=== PATIENT | female | born 1950 | race Caucasian/White ===

== ENCOUNTER 2018-05-02 09:13 | Day surgery (SDC) | payer MEDICARE, SELFPAY ==
[2018-04-27 15:48] LABS: Prothrombin Time (Protime)PT. 12.8 SECONDS (11.7-14.9)
[2018-04-27 15:49] LABS: Partial Thromboplast Time 25.8 Seconds (24.1-36.2)
[2018-04-27 15:52] LABS: Hematocrit 48.3 % (37-47); Hemoglobin 16.4 g/dl (12.0-15.0); Mean Corpuscular Hgb 33.5 pg (27.0-32.0); Mean Corpuscular Volume 98.8 fL (81-99); Mean Platelet Vol. 10.2 fl (6.2-12.0); Platelet Count 214 K/mm3 (150-450); RBC Distribution Width CV 14.6 % (11.6-14.6); RBC Distribution Width SD 52.6 fl (35.1-43.9); Red Blood Count 4.89 M/mm3 (4.2-5.4); White Blood Count 7.8 K/mm3 (4.4-11.0)
[2018-04-27 15:54] LABS: Scan Indicated on CBC? Y/N NO
[2018-04-27 16:09] LABS: Anion Gap 12 (5-15); BUN 13 mg/dL (7-18); BUN/Creat Ratio 18.7 RATIO (10-20); Calcium,Total 9.2 mg/dL (8.5-10.1); Chloride 103 mmol/L (98-107); EST Glomerular Filtration Rate 89 mL/min (>60); Est Glom Filt Rate - Afr Amer 108 mL/min (>60); Glucose 83 mg/dL (74-106); Potassium 3.7 mmol/L (3.5-5.1); Sodium Level 140 mmol/L (136-145)
--- NOTE | 2018-05-01 17:36 | PCM.HP.BLA ---
History and Physical Date of Admission: 05/02/18 Surgical History and Physical Laura Sloan, a 68 year old female 2 0 0 0 2, presents for D and C and hysteroscopy on May 02, 2018. 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 Laura claims it started suddenly and has been present 5 weeks. It occurs intermittantly. It is located in the lower abdomen. Laura characterizes it to be non-radiating. Laura characterizes the quality spotting. Severity is moderate and very concerned; Additional comments are: EMBx OK; U/S shows 13 mm EM lining. MEDICATIONS HISTORY: Patient is also takin. omeprazole 20 mg capsule,delayed release, One pill by mouth once a day ALLERGIES: No Known Allergies Infections - Chicken pox, Mumps and Measles Illnesses - Borderline Diabetes, Acid Reflux Accidents - None Hospitalizations - see surgery Review of Systems: GENERAL - Denies fever, or chills SKIN - Denies skin changes EYES - Denies visual changes EARS - Denies difficulty hearing NOSE - Denies nasal congestion or bleeding MOUTH - Denies sore throat or difficulty swallowing NECK - Denies pain or swelling RESPIRATORY - Denies shortness of breath or wheezing CARDIOVASCULAR - Denies palpitations or chest pain GASTROINTESTINAL - Denies nausea, vomiting, diarrhea, constipation GENITOURINARY - Denies dysuria, frequency of urination, incontinence of urine MUSCULOSKELETAL - Denies joint or muscle pain NEUROLOGICAL - Denies localized numbness or weakness PSYCHIATRIC - Denies depression or anxiety ENDOCRINE - Denies heat or cold intolerance, weight loss or gain HEMATO-IMMUNOLOGIC - Denies excesive bleeding with cuts SOCIAL HISTORY: Alcohol Use - wine Smoking - / PPD (ATQ) Diet - no special diet Lifestyle - moderate stress lifestyle and Exercise - active Seat Belt Use - always Employer - Retired Illicit Drug Use - None Sexual Activity - Spouse-Sig Other Name - Umesh Sloan Spouse-Sig Other Occupation - Retired Children Name(s) - 2 children Control - postmenopausal FAMILY HISTORY: MENSTRUAL HISTORY: LMP Known?- Postmenopausal PAST PREGNANCIES: Total Pregnancies - 2; Full Term Pregnancies - 2; Premature - 0; Abortions, Induced - 0; Abortions, Spontaneous - 0; Ectopics - 0; Multiple Births - 0; Living Children - 2 SURGICAL HISTORY: 1. Tubal, 1979 PHYSICAL EXAM BP- 140/90 Sitting, Right arm, regular cuff Weight- 279.76066 lbs Height- 67.00 inch BMI:43.91 CONSTITUTIONAL - NAD, well nourished, and well developed SKIN - No rash, lesions, or ulcers HEENT - Normocephalic, PERRLA, EOMI NECK - No nodes, no nuchal rigidity and thyroid normal size and texture LYMPH NODES - Palpation of lymph nodes in neck and groins within normal limits LUNGS - CTA x2 without wheezes, crackles or rales CARDIAC - Regular rate and rhythm without rubs, murmurs, or gallops ABDOMEN - Without hepatosplenomegaly, distention, masses, rebound, or guarding; normal bowel sounds; no hernias EXTREMITIES - No edema or calf tenderness NEUROLOGICAL - Cranial nerves II-XII grossly intact PSYCHIATRIC - A and O to time, place, person, mood and affect DETAILED PELVIC EXAM External Genitial Vagina - non-tender without lesions Urethra/Urethral Meatus - non-tender Bladder - non-tender Vagina - vaginal valle are pink and moist without loss of rugae and no evidence of atropy Cervix - without cervical motion tenderness and has normal size and features without evident lesions Uterus - multiparous size 6 cm & wt 75-125 g Adnexa - clear without masses or tenderness ASSESSMENT/PLAN: 1. Postmenopausal Bleeding Thickened Endometrium. Discussed need to proceed with D and C and H/S. Discussed RBAs and all questions answered.
[2018-05-02 09:39] VITALS: BP 144/87; PULSE 78; RESP 16; TEMP 36.7; O2SAT 94; BMI 43.3
[2018-05-02 09:56] LABS: Bedside Glucose 133 mg/dL (70-110)
--- NOTE | 2018-05-02 10:55 | CER_PTH ---
PATIENT: JONNATHAN SNOW LOC: [facility] [place] [facility] [place][id number] AGE/SX: 68/F ROOM: RE05/02/[address]: Dr. Gamaliel Jiménez MD : 1950 BED: DIS: 05/02/2018 SPEC #: [id number] RECD: 05/02/18 12:28 STATUS: KEVIN SALVADOR #: [id number] BO: 05/02/18 10:[address]: Gamaliel Jiménez DEPT: SURGICAL PATHOLOGY RECD BY: Julius Zimmerman ENTERED: 05/02/18 13:14 SP TYPE: CERV OTHR DR: Dr. Bridger Grewal MD Tissues: A - Uterine cervix, NOS B - Endometrium, NOS Procedures: Surgery Specimen Level IV HEADER OPERATION: Hysteroscopy, fractional dilation and curettage PRE-OP DIAGNOSIS: Postmenopausal bleeding, thickened endometrium TISSUE SUBMITTED: A - Cervical curettings, B - Endometrial curettings MICROSCOPIC DIAGNOSIS A. Cervix, curettings: Scant strips of benign superficial endocervix. B. Endometrium, curettings: Polypoid fragments of simple and focal complex hyperplasia without atypia. Detached fragments of benign squamous mucosa. See comment. AM:vandana 05/03/18 COMMENT B. The polypoid fragments may represent portions of endometrial polyp. Clinical correlation is suggested. MICROSCOPIC DESCRIPTION Slides are reviewed. GROSS DESCRIPTION A - Received in fixative is one container labeled with the patient's name and designated cervical curettings. The specimen consists of light mucoid material aggregating to 1 x 0.2 x <0.1 cm. The specimen is totally submitted in one cassette. B - Received in fixative is one container labeled with the patient's name and designated endometrial curettings. The specimen consists of multiple irregular fragments of pink-vasquez soft tissue that in aggregate measure 2.5 x 2 x 0.2 cm. The specimen is totally submitted in one cassette. / AM:vandana 05/02/18 TC:5 CPT: 96902 x2
--- NOTE | 2018-05-02 11:53 | PCM.OPRPT ---
Report of Operation Date of Procedure: 05/02/18 Pre-Operative Diagnosis: Postmenopausal Bleeding, Thickened Endometrium Post-Operative Diagnosis: This Menopausal Bleeding, Thickened Endometrial, Endometrial Polyp Surgery/Procedure Performed:: Hysteroscopy and Fractional Dilation and Curettage Description of Surgical Findings:: 8 cm endometrial cavity with cervix high in the vagina making LAVH technically extremely difficult. However robotic hysterectomy would be feasible if needed. There is noted to be approximately a 1 cm lobulated polyp in the left mid uterine cavity. This was removed completely and noted to be clear with repeat hysteroscopic examination. Type of Anesthesia:: MAC Anesthesiologist: Moises Mix Specimen's removed: Endometrial curettings and endocervical curettings Drains: None Estimated Blood Loss (mL): Minimal Fluids Replaced: Crystalloid Description of Procedure: Surgeon: Gamaliel Jiménez MD, FACOG Indications: This is a 68 year old patient who has the above diagnosis. The patient has been counseled regarding the risk and indications of this procedure including the possibility of bleeding, infection, and injury to surrounding structures such as bowel bladder. All questions were answered and we consider the patient well-informed. Procedure: The patient was taken to the operating room where after induction of general anesthesia, she was placed in the dorsolithotomy position and prepped and draped in the usual sterile fashion. After collecting an endocervical specimen, the anterior cervix was grasped with the tenaculum and dilated to about 4-5 mm. A 3 mm hysteroscope was placed in the uterus of the above findings were noted. Cervix was dilated to about 7-8 mm and uterus was gently curetted removing all contents. Hysteroscope was reinserted and all material was noted to be removed. In the course of the procedure approximately 100 cc of saline distending media was used and virtually all of this was recovered. Patient tolerated procedure well was taken to recovery room in satisfactory condition sponge instrument and needle counts were all reportedly correct. Estimated blood loss for the case was minimal. Specimens to pathology was endometrial and endocervical curettings Grafts/Implants Used: None - Complications None - Admit VTE Documentation VTE Present on Admission: Yes VTE Mechan Device Prophylaxis: SCD's VTE Pharm Prophylaxis ordered?: No
--- NOTE | 2018-05-02 11:59 | DCINST_ITS ---
Discharge Diet: No Restrictions Discharge Activity: Return to Normal Activity, May Shower, May Take a Tub Bath Call your doctor if you observe: Fever of 101 or Higher, Inability to urinate, Inability to have a bowel movement, Using more than one pad per hour Allergies/Adverse Reactions: Allergies amoxicillin [From Augmentin] Allergy (Verified 04/26/18 11:08) JAUNDICE/DIARRHEA clavulanic acid [From Augmentin] Allergy (Verified 04/26/18 11:08) JAUNDICE/DIARRHEA levofloxacin [From Levaquin] Allergy (Verified 04/26/18 11:08) JAUNDICE/DIARRHEA Medications to take at Discharge Chromium/Herbal Complex No.238 [Green Tea Caplet] 1 each PO DAILY 04/26/18 Cinnamon Bark [Cinnamon] 1,000 mg PO DAILY 04/26/18 Cranberry 42 mg PO DAILY 04/26/18 Lactobacillus Combo No.10 [Probiotic] 1 each PO DAILY 04/26/18 Magnesium 250 mg PO DAILY 04/26/18 Methylcellulose [Fiber] 500 mg PO DAILY 04/26/18 Multivitamin with Minerals [Multiple Vitamin] 1 each PO DAILY 04/26/18 Omeprazole Magnesium [Prilosec Otc] 20 mg PO DAILY 04/26/18 Potassium (Otc) [Potassium Otc] 99 mg PO DAILY 04/26/18 Primary Care Physician: Bridger Grewal [Primary Care Provider] - Test Results: Test results from this visit will be discussed in further detail at your follow- up appointment, if applicable. Please Follow Up With: Gamaliel Jiménez MD When: 2-3 weeks
[2018-05-02 12:01] VITALS: BP 132/75; BP 144/87; PULSE 88; RESP 18; TEMP 36.5; O2SAT 98
[2018-05-02 12:05] VITALS: BP 144/87; BP 147/82; PULSE 88; RESP 18; O2SAT 98
[2018-05-02 12:10] VITALS: BP 144/87; BP 147/74; PULSE 84; RESP 18; O2SAT 94
[2018-05-02 12:15] VITALS: BP 144/87; BP 150/88; PULSE 89; RESP 18; TEMP 36.8; O2SAT 93
[2018-05-02 13:12] VITALS: BP 144/87
== END 2018-05-02 13:18 | disposition home or self-care (01) ==
LOC: SDC 09:18 → AC 09:27
PROVIDERS: Family Provider Family Medicine; PCP Family Medicine; Referring Provider Obstetrics & Gynecology; Visit Provider Obstetrics & Gynecology
PROC: 0UDB8ZZ Extraction of Endometrium, Via Natural or Artificial Opening Endoscopic (ICD-10-PCS; CPT 58558; principal; 2018-05-02 10:45)
DX: N85.01 Benign endometrial hyperplasia (principal); K21.9 Gastro-esophageal reflux disease without esophagitis; R73.09 Other abnormal glucose; N95.0 Postmenopausal bleeding; N84.0 Polyp of corpus uteri; Z79.899 Other long term (current) drug therapy; F17.200 Nicotine dependence, unspecified, uncomplicated
CPT/HCPCS: 00952; 58558; 36415; 80048; 82962; 85027; 85610; 85730; 86850; 86900; 88305; J7120; J2405

== ENCOUNTER 2018-06-13 08:14 | Day surgery (SDC) | payer MEDICARE, SELFPAY ==
--- NOTE | 2018-06-08 12:01 | EKG12_ITS ---
Test Reason : PREOP Blood Pressure : / mmHG Vent. Rate : 087 BPM Atrial Rate : 087 BPM P-R Int : 158 ms QRS Dur : 074 ms QT Int : 372 ms P-R-T Axes : 039 -25 059 degrees QTc Int : 447 ms Normal sinus rhythm Normal ECG Confirmed by DONITA PAGAN, PLACIDO ([id number]), associate entertainment editor REYNA TEJADA ([id number]) on 06/09/2018 11:21:32 AM Referred By: Gamaliel Jiménez Confirmed By:PLACIDO DUCKWORTH MD
[2018-06-08 12:13] LABS: Hematocrit 52.2 % (37-47); Mean Corp Hgb Conc 32.6 g/gl (32-36); Mean Corpuscular Hgb 32.3 pg (27.0-32.0); Mean Corpuscular Volume 99.2 fL (81-99); Mean Platelet Vol. 9.9 fl (6.2-12.0); Platelet Count 204 K/mm3 (150-450); RBC Distribution Width CV 12.7 % (11.6-14.6); RBC Distribution Width SD 46.1 fl (35.1-43.9); Red Blood Count 5.26 M/mm3 (4.2-5.4)
[2018-06-08 12:17] LABS: Scan Indicated on CBC? Y/N NO
[2018-06-08 12:21] LABS: Prothrombin Time (Protime)PT. 12.7 SECONDS (11.7-14.9)
[2018-06-08 12:22] LABS: Partial Thromboplast Time 28.6 Seconds (24.1-36.2)
[2018-06-08 12:42] LABS: ALB/GLOB Ratio 0.9 RATIO (0.9-2.4); AST(SGOT) 32 U/L (15-37); Alanine Aminotransfer ALT/SGPT 44 U/L (13-56); Albumin, Serum 3.6 g/dL (3.2-5.0); Alkaline Phosphatase 105 U/L (45-117); Anion Gap 6 (5-15); BUN 13 mg/dL (7-18); BUN/Creat Ratio 17.9 RATIO (10-20); Calcium,Total 8.9 mg/dL (8.5-10.1); Chloride 105 mmol/L (98-107); Creatinine, Serum 0.73 mg/dL (0.55-1.02); EST Glomerular Filtration Rate 85 mL/min (>60); Est Glom Filt Rate - Afr Amer 102 mL/min (>60); Globulin 3.8 g/dL (2.2-4.2); Glucose 105 mg/dL (74-106); Potassium 4.2 mmol/L (3.5-5.1); Protein, Total 7.4 g/dL (6.4-8.2); Sodium Level 136 mmol/L (136-145)
--- NOTE | 2018-06-12 21:04 | PCM.HP.BLA ---
History and Physical Date of Admission: 06/13/18 Surgical History and Physical Laura Sloan, a 68 year old female 2 0 0 0 2, presents for RAVH/BSO on June 13, 2018 at 7;30. 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 Bleeding now has stopped. PMB which began 01-27-18. Laura claims it started suddenly. It occurs intermittantly. Laura characterizes the quality spotting. Severity is moderate and very concerned. Additional comments are: Referred by Dr. Grewal.; Additional comments are: EMBx OK; U/S shows 13 mm EM lining. MEDICATIONS HISTORY: Patient is also takin. omeprazole 20 mg capsule,delayed release, One pill by mouth once a day ALLERGIES: No Known Allergies, Augmentin, Jaundice, Levaquin and Jaundice Infections - Chicken pox, Mumps and Measles Illnesses - Borderline Diabetes, Acid Reflux Accidents - None Hospitalizations - see surgery Review of Systems: GENERAL - Denies fever, or chills SKIN - Denies skin changes EYES - Denies visual changes EARS - Denies difficulty hearing NOSE - Denies nasal congestion or bleeding MOUTH - Denies sore throat or difficulty swallowing NECK - Denies pain or swelling RESPIRATORY - Denies shortness of breath or wheezing CARDIOVASCULAR - Denies palpitations or chest pain GASTROINTESTINAL - Denies nausea, vomiting, diarrhea, constipation GENITOURINARY - Denies dysuria, frequency of urination, incontinence of urine MUSCULOSKELETAL - Denies joint or muscle pain NEUROLOGICAL - Denies localized numbness or weakness PSYCHIATRIC - Denies depression or anxiety ENDOCRINE - Denies heat or cold intolerance, weight loss or gain HEMATO-IMMUNOLOGIC - Denies excesive bleeding with cuts SOCIAL HISTORY: Alcohol Use - wine Smoking - 1/ PPD (ATQ) Diet - no special diet Lifestyle - moderate stress lifestyle and Exercise - active Seat Belt Use - always Employer - Retired Illicit Drug Use - None Sexual Activity - Spouse-Sig Other Name - Umesh Sloan Spouse-Sig Other Occupation - Retired Children Name(s) - 2 children Control - postmenopausal FAMILY HISTORY: nc MENSTRUAL HISTORY: LMP Known?- Postmenopausal PAST PREGNANCIES: Total Pregnancies - 2; Full Term Pregnancies - 2; Premature - 0; Abortions, Induced - 0; Abortions, Spontaneous - 0; Ectopics - 0; Multiple Births - 0; Living Children - 2 SURGICAL HISTORY: 1. Tubal, 1979 2. 05/02/2018 hysteroscopy, fractional D and C ; Gamaliel Jiménez M.D. PHYSICAL EXAM BP- 138/86 Sitting, Right arm, large cuff Weight- 278.04376 lbs Height- 67 inch BMI:43.63 CONSTITUTIONAL - NAD, well nourished, and well developed SKIN - No rash, lesions, or ulcers HEENT - Normocephalic, PERRLA, EOMI NECK - No nodes, no nuchal rigidity and thyroid normal size and texture LYMPH NODES - Palpation of lymph nodes in neck and groins within normal limits LUNGS - CTA x2 without wheezes, crackles or rales CARDIAC - Regular rate and rhythm without rubs, murmurs, or gallops ABDOMEN - Without hepatosplenomegaly, distention, masses, rebound, or guarding; normal bowel sounds; no hernias EXTREMITIES - No edema or calf tenderness NEUROLOGICAL - Cranial nerves II-XII grossly intact PSYCHIATRIC - A and O to time, place, person, mood and affect DETAILED PELVIC EXAM External Genitial Vagina - non-tender without lesions Urethra/Urethral Meatus - non-tender Bladder - non-tender Vagina - vaginal valle are pink and moist without loss of rugae and no evidence of atropy Cervix - without cervical motion tenderness and has normal size and features without evident lesions Uterus - multiparous size 6 cm & wt 75-125 g Adnexa - clear without massess or tenderness ASSESSMENT/PLAN: 1. Complex Endometrial Hyperplasia Without Atypia and Postmenopausal Bleeding Discussed options for treatment including prolonged progesterone therapy or proceeding with hysterectomy. Pt desires the surgery. Plan RAVH/BSO. Discussed RBAs and all questions answered.
[2018-06-13] VITALS (14 sets, daily range): BP systolic 114–159; BP diastolic 46–88; PULSE 63–104; RESP 14–24; TEMP 36.4–37.2; O2SAT 89–97; BMI 43.0
--- NOTE | 2018-06-13 10:30 | HYST_PTH ---
PATIENT: JONNATHAN SNOW LOC: [facility] [place] U#:[id number] AGE/SX: 68/F ROOM: RE06/13/[address]: Dr. Gamaliel Jiménez MD : 1950 BED: DIS: 06/14/2018 SPEC #: [id number] RECD: 06/13/18 16:47 STATUS: KEVIN REBarry #: [id number] BO: 06/13/18 10:[address]: Gamaliel Jiménez DEPT: SURGICAL PATHOLOGY RECD BY: Julius Zimmerman ENTERED: 06/14/18 07:51 SP TYPE: HYSTERECT OTHR DR: Dr. Brigder Grewal MD Tissues: Uterus, NOS Procedures: Surgery Specimen Level V HEADER OPERATION: Robotic assisted vaginal hysterectomy, bilateral salpingo-oophorectomy PRE-OP DIAGNOSIS: Complex endometrial hyperplasia without atypia and postmenopausal bleeding TISSUE SUBMITTED: Uterus, cervix, bilateral fallopian tubes, bilateral ovaries MICROSCOPIC DIAGNOSIS Uterus, hysterectomy: Cervix - nabothian cysts, squamous metaplasia and minimal chronic inflammation. Endometrium - simple and focal complex hyperplasia without atypia. Myometrium - extensive adenomyosis and leiomyoma. Right ovary - corpora albicantia. Right fallopian tube - no pathologic change. Left ovary - corpora albicantia. Left fallopian tube - no pathologic change. AM:vandana 06/15/18 COMMENT Reference is made to the patient's previous endometrial biopsy from 05/03/18 ([id number]) in which simple and focal complex hyperplasia without atypia was identified. Case has been reviewed in consultation with Dr. Burrell who concurs with the above diagnosis. IDC:[id number] MICROSCOPIC DESCRIPTION Slides are reviewed. GROSS DESCRIPTION Received in fixative is one container labeled with the patient's name and designated uterus, cervix, bilateral fallopian tubes and bilateral ovaries. The specimen consists of a hysterectomy specimen consisting of uterus with cervix with attached right fallopian tube and ovary and detached left fallopian tube and ovary. A small proximal portion of left fallopian tube is attached to the cornu. The uterus with cervix weighs 75 gm and measures 8 x 5 x 4 cm. The serosal surface is vasquez, glistening. The ectocervical mucosa is unremarkable. The external os is oval in contour. A subserosal nodule is noted. The endocervical canal measures 3 cm in length and the endocervical mucosa is vasquez, glistening and unremarkable. Sections of cervix reveal two cysts filled with mucoid material. The triangular endometrial cavity measures 3.5 cm in length and up to 1.5 cm in width. The endometrium is vasquez, congested without any mass lesion and measures <0.1 cm in thickness. Sections of the myometrial wall reveal a subserosal nodule measuring 0.5 cm in greatest dimension. The uterine wall measures up to 1.5 cm in thickness. The right fallopian tube measures 4 cm in length and 0.4 cm in diameter. The fimbrial end is identified. No tubo-ovarian adhesions are noted. Sections reveal unremarkable cut surfaces. The right ovary measures 2 x 1 x 1 cm. Sections reveal unremarkable cut surfaces. The left fallopian tube measures 2 cm in length and 0.4 cm in diameter. Attached proximal portion of fallopian tube measures 0.5 cm in length. The fimbrial end is identified. Sections reveal unremarkable cut surfaces. The left ovary measures 1.5 x 1 x 1 cm. Sections reveal unremarkable cut surfaces. Buoy Tender sections are submitted in 11 cassettes as follows: 1 - anterior cervix, 2 - posterior cervix, 3-5 - anterior uterine wall, 6-8 - posterior uterine wall, 9 - subserosal nodular mass, 10 - right fallopian tube and ovary, 11 - left fallopian tube and ovary. / RUY:vandana 06/14/18 TC:5 CPT: 10643
--- NOTE | 2018-06-13 12:00 | PCM.OPRPT ---
Report of Operation Date of Procedure: 06/13/18 Pre-Operative Diagnosis: Complex Endometrial Hyperplasia without Atypia Post-Operative Diagnosis: Complex Endometrial Hyperplasia without Atypia Surgery/Procedure Performed:: Robotic Assisted Vaginal Hysterectomy and Bilateral Salpingo-Oophorectomy Description of Surgical Findings:: 8 cm uterus with normal-appearing fallopian tubes and ovaries product development carpenter: Karan Victoria Type of Anesthesia:: General - Endotracheal Anesthesiologist: Alban Wise Specimen's removed: Uterus bilateral fallopian tubes and ovaries Drains: Diop to straight drain Estimated Blood Loss (mL): Minimal Fluids Replaced: Crystalloid Description of Procedure: Surgeon: Gamaliel Jiménez MD, FACOG Indication: This is a 68 year old patient who has been having problems with postmenopausal bleeding and complex endometrial hyperplasia. Conservative measures have not been helpful. The patient has been counseled regarding the risks, benefits and alternatives of this procedure including the possibility of bleeding, infection, and injury to surrounding structures such as bowel bladder and all questions were answered. Procedure: Pt taken to the operating room where after induction of general anesthesia the patient was prepped and draped in the usual sterile fashion and placed on a non-slip Huggy-u-vac device. Trendendelenburg test was satisfactory. Bladder was drained of urine with a Diop catheter which was left in place. Anterior cervix grasped and cervix was dilated to about 3-4 mm. Uterus sounded to 8 cms. 0-Vicryl suture was placed at the 3:00 and 9:00 position of the cervix. A large V-care device was then placed in the uterus to allow uterine manipulation and attention was turned to the laparoscopic portion of the procedure. Ropivocaine 0.5% was injected approximately 2-3 cm superior to the umbilicus and an 8 mm robotic camera port was introduced directly with intraperitoneal placement confirmed with insufflation. 8 mm robotic side ports were introduced under direct visualization approximately 11 cm lateral and 2 cm inferior to the umbilical port. A 5 mm left upper quadrant port was introduced and airseal insufflation with CO2 was started. The above findings were noted. Robot was docked without difficulty and attention turned to the robotic portion of the procedure. Approximately 30 cc of Ropivicaine was used. Bilateral infundibulocal ligaments/mesosalpinx were ligated with 35 diaz bipolar coagulation to the level of the round ligament. The posterior aspect of the cervix was identified and then opened for about 1 cm using 25 watt monopolar cautery identifying the V-care device which had been placed vaginally. Bladder flap was opened and divided to the level of the round ligaments using monopolar cautery. Progressive bites were then ligated on each side of the cervix with 35 diaz bipolar cautery to the uterine arteries. The anterior vaginal mucosa was then entered and cervix circumscribed with monopolar cautery. Uterus and attached ovaries and tubes were then removed through the vagina. Vaginal cuff was closed first with 0-Vicryl Joe stitches placed at each angle followed by closure of the mid-cuff with 0-Monocryl V-lock suture in two layers. It should be noted that the posterior vaginal cuff was fairly thick which made closure difficult. There were also some filmy adhesions of the rectosigmoid to the posterior cul-de-sac which made manipulation of the rectosigmoid difficult near the vaginal cuff. Some of these filmy adhesions were taken down with scissors and others were left in place. Pelvis was copiously irrigated with saline. Robot was undocked and trocars were removed with as much gas as possible. Incisions were closed with 4-0 Monocryl subcuticular sutures and incisions covered with steri-strips and opsite dressing. The patient tolerated the procedure well and was taken to the recovery room in satisfactory condition. Sponge, instruments and needle counts were all correct. There were no apparent complications of the surgery. Cefotan 2 gms IV was given prior to the procedure. Specimen to Pathology: Uterus and bilateral tubes and ovaries Grafts/Implants Used: None - Complications None - Admit VTE Documentation VTE Present on Admission: Yes VTE Mechan Device Prophylaxis: SCD's VTE Pharm Prophylaxis ordered?: Yes
--- NOTE | 2018-06-13 12:04 | DCINST_ITS ---
Discharge Diet: No Restrictions Discharge Activity: Return to Normal Activity, May Not Drive - while taking narcotic pain medications., May Shower, May Take a Tub Bath May resume sexual activity in: 6-8 weeks Call your doctor if your incision/area has: Continuous Slow Oozing, Sudden Inc reased Bleeding, Increased Pain/ Swelling, Increased Redness, Foul Smelling Discharge Call your doctor if you observe: Fever of 101 or Higher, Inability to urinate, Inability to have a bowel movement, Using more than one pad per hour Allergies/Adverse Reactions: Allergies amoxicillin [From Augmentin] Adverse Reaction (Verified 06/10/18 17:35) JAUNDICE/DIARRHEA clavulanic acid [From Augmentin] Adverse Reaction (Verified 06/10/18 17:35) JAUNDICE/DIARRHEA levofloxacin [From Levaquin] Adverse Reaction (Verified 06/10/18 17:35) JAUNDICE/DIARRHEA Medications to take at Discharge Chromium/Herbal Complex No.238 [Green Tea Caplet] 1 each PO DAILY 04/26/18 Cinnamon Bark [Cinnamon] 1,000 mg PO DAILY 04/26/18 Cranberry 42 mg PO DAILY 04/26/18 Lactobacillus Combo No.10 [Probiotic] 1 each PO DAILY 04/26/18 Magnesium 250 mg PO DAILY 04/26/18 Methylcellulose [Fiber] 500 mg PO DAILY 04/26/18 Multivitamin with Minerals [Multiple Vitamin] 1 each PO DAILY 04/26/18 Omeprazole Magnesium [Prilosec Otc] 20 mg PO DAILY 04/26/18 Potassium (Otc) [Potassium Otc] 99 mg PO DAILY 04/26/18 Calcium Carbonate/Vitamin D3 [Calcium 500 mg Chewable Tablet] 1 each PO DAILY 06/06/18 Docusate Sodium [Colace] 100 mg PO BID PRN PRN #60 cap 06/13/18 Oxycodone [Oxyir] 5 mg PO Q6H PRN PRN 7 Days #20 tab 06/13/18 The following prescriptions were given: Oxycodone [Oxyir] 5 mg PO Q6H PRN PRN 7 Days #20 tab PRN Reason: Severe Pain (6-01/05) Docusate Sodium [Colace] 100 mg PO BID PRN PRN #60 cap PRN Reason: Constipation Primary Care Physician: Bridger Grewal [Primary Care Provider] - Test Results: Test results from this visit will be discussed in further detail at your follow- up appointment, if applicable. Please Follow Up With: Gamaliel Jiménez MD When: 2-3 weeks
[2018-06-13] MEDS: Ropivacaine 0.5% 30 ML Vial (12:40)
[2018-06-13] MEDS: Dextrose 5%-Lactated Ringers 1,000 ML 150 ML IV (16:35)
[2018-06-13] MEDS: Acetaminophen 500 MG Tablet 1000 MG PO (17:45)
[2018-06-13] MEDS: Enoxaparin 40 MG/0.4 ML Syringe SC (17:48)
[2018-06-13] MEDS: Ketorolac 15 MG/ML Vial IV (20:24)
--- NOTE | 2018-06-14 01:56 | NURSING ---
PT STOOD AT BEDSIDE, TOLERATED VERY WELL.
[2018-06-14 02:01] VITALS: BP 141/76; PULSE 82; RESP 16; TEMP 36.4; O2SAT 97
[2018-06-14] MEDS: Acetaminophen 500 MG Tablet 1000 MG PO (02:12)
[2018-06-14] MEDS: 0.9% NaCl Peripheral Flush Adult/Peds IV ×2 (03:35→08:59)
[2018-06-14] MEDS: Ketorolac 15 MG/ML Vial IV ×2 (03:35→08:59)
[2018-06-14 06:15] LABS: Hematocrit 46.5 % (37-47); Hemoglobin 14.9 g/dl (12.0-15.0); Mean Corpuscular Hgb 32.1 pg (27.0-32.0); Mean Corpuscular Volume 100.2 fL (81-99); Mean Platelet Vol. 10.2 fl (6.2-12.0); Platelet Count 206 K/mm3 (150-450); RBC Distribution Width CV 12.8 % (11.6-14.6); RBC Distribution Width SD 46.8 fl (35.1-43.9); Red Blood Count 4.64 M/mm3 (4.2-5.4); White Blood Count 14.8 K/mm3 (4.4-11.0)
[2018-06-14 06:28] LABS: Scan Indicated on CBC? Y/N NO
[2018-06-14 06:44] LABS: EST Glomerular Filtration Rate 76 mL/min (>60); Est Glom Filt Rate - Afr Amer 91 mL/min (>60); Estimated Creatinine Clearance 65.45 ml/min
[2018-06-14 07:00] VITALS: O2SAT 96
[2018-06-14 08:51] VITALS: BP 127/69; PULSE 90; RESP 18; TEMP 36.8; O2SAT 94
--- NOTE | 2018-06-14 08:54 | PCM.PN.OB ---
Subjective: Patient without complaints. Tolerating diet well. Positive flatus. Minimal vaginal bleeding. - Physical Exam Vital Signs Temp Pulse Resp BP Pulse Ox 98.3 F 90 18 127/69 H 94 06/14/18 08:51 06/14/18 08:51 06/14/18 08:51 06/14/18 08:51 06/14/18 08:51 Oxygen Flow Rate (L/min) 2 Oxygen Delivery Method Room Air Weight: 275 lb 2.19 oz Body Mass Index (BMI) 43.0 Intake and Output for Last 24 Hours 06/12/18 06/13/18 06/14/18 23:59 23:59 23:59 Intake Total 3200 / 3200 2338 / 2338 Output Total 205 / 205 2250 / 2250 Balance 2995 / 2995 88 / 88 Laboratory Tests Past 24 Hrs 06/14/18 06/14/18 05:08 05:08 WBC 14.8 H RBC 4.64 Hgb 14.9 Hct 46.5 MCV 100.2 H MCH 32.1 H MCHC 32.0 RDW 12.8 RDW Differential 46.8 H Plt Count 206 MPV 10.2 Creatinine 0.80 Estim Creat Clear Calc 65.45 Est GFR (MDRD) Af Amer 91 Est GFR (MDRD) Non-Af 76 Wounds are clean, dry, intact. Good urine output. Hemoglobin and creatinine okay. Medical Necessity - Tobacco Use Smoking Status: Current every day smoker Assessment/Plan Doing well status post operative day #1 robotic assisted vaginal hysterectomy and bilateral salpingo-oophorectomy. Will release to home with routine instructions.
[2018-06-14] MEDS: Pantoprazole Sodium 20 MG Tablet PO (08:59)
== END 2018-06-14 11:00 | disposition home or self-care (01) ==
LOC: SDC 08:14 → AC 09:14 → MS3 12:15
PROVIDERS: Family Provider Family Medicine; PCP Family Medicine; Referring Provider Obstetrics & Gynecology; Visit Provider Obstetrics & Gynecology
PROC: 0UT94ZZ Resection of Uterus, Percutaneous Endoscopic Approach (ICD-10-PCS; CPT 58571; principal; 2018-06-13 10:10)
DX: N85.01 Benign endometrial hyperplasia (principal); D25.9 Leiomyoma of uterus, unspecified; K21.9 Gastro-esophageal reflux disease without esophagitis; R73.09 Other abnormal glucose; N95.0 Postmenopausal bleeding; Z79.899 Other long term (current) drug therapy; F17.210 Nicotine dependence, cigarettes, uncomplicated
CPT/HCPCS: 00940; 58571; S2900; 36415; 80053; 82565; 85027; 85610; 85730; 86850; 86900; 88307; 93005; 94640; 99406; J7120; A4216; J2405

== ENCOUNTER → 2023-08-17 | Outpatient (CLI) | payer MEDICARE, SELFPAY | END | disposition home or self-care (01) | LOC: LABSPEC 12:01 | PROVIDERS: PCP Family Medicine; Referring Provider Nurse Practitioner Women's Health; Visit Provider Nurse Practitioner Women's Health | DX: N89.8 Other specified noninflammatory disorders of vagina (principal) | CPT/HCPCS: 87070; 87205 ==

== ENCOUNTER 2024-02-29 12:40 | Day surgery (SDC) | payer MEDICARE, SELFPAY ==
[2024-02-29] VITALS (8 sets, daily range): BP systolic 120–153; BP diastolic 59–82; PULSE 77–88; RESP 15–18; TEMP 36.3–36.6; O2SAT 97–98; BMI 41.8
--- NOTE | 2024-02-29 13:25 | HP.PCM_ITS ---
History and Physical Date of Admission: 02/29/24 JONNATHAN SNOW, is a 74 F who presents to the office today for initial consult. *I established 01.20.24 pt reports that she is establishing care due to a positive cologuard in August of 2023. Pt reports she is not experiencing any GI symptoms of concern at this time. Pt reports her last colonoscopy was 10 years ago and that she has never had an EGD. ROS Const Constitutional: No fatigue, fever(s) or weight change ENT ENT: No difficulty swallowing Gastro GI: Positive for heartburn; No abdominal pain, belching, bloating, change in bowel habits, change in stool character, coffee ground emesis, constipation, cramping, diarrhea, difficulty swallowing, feeling full early, excessive flatus, incontinent of stools, Vomiting blood/hematemesis, Blood in stool, loose stools, Black,tarry stools, nausea/dyspepsia, pain with swallowing, vomiting or other Musc Musculoskeletal: Positive for joint pain, back pain and Arthritis Skin Skin: No yellowing of the eye or itchy eyes Psych Psychiatric: No anxiety and No depression Endo Endocrine: No fatigue or weight change Aller/Imm Allergy/Immunologic: No itchy eyes Filemon/Lymp Hematologic/Lymphatic: No easy bleeding or easy bruising Exam Const General: cooperative and comfortable Nutritional Appearance: average body habitus and well nourished [facility] Head: normal to inspection Ears: hearing grossly normal bilaterally Nose: external nose normal Face and sinus: normal facial exam Mouth: oral mucosae normal Throat: posterior oropharynx normal Eyes General: appearance normal, both eyes and all related structures Neck Neck: normal visual inspection Chest Chest palpation & inspection: normal inspection of the chest and normal palpation of entire chest wall Resp Effort & Inspection: normal respiratory effort Auscultation: Bilateral: Clear to Auscultation Cardio Palpation: normal PMI Rate: regular rate Rhythm: regular rhythm GI Inspection: normal to inspection Auscultation: normal bowel sounds Percussion: normal to percussion Palpation: no hepatosplenomegaly Skin General: no rashes or lesions noted Neuro General: patient alert Extrem General: normal to inspection Psych Affect: normal affect Assessment and Plan Assessment and Plan (1) Positive colorectal cancer screening using Cologuard test: Status: Acute (2) Acid reflux: Status: Acute Plan: This is a very pleasant 74-year-old with past medical history of gastroesophageal reflux disease, sleep apnea, hypothyroidism, prediabetes who has had reflux disease for multiple years. She feels like her medicines are working. She has tried H2 receptor gwendolyn and is currently on a PPI once a day. She takes omeprazole 20 mg in the morning. She is not getting regurgitation. She is complaining of some bloating and refractory heartburn causing her to need extra medicine. She will undergo an upper endoscopy to evaluate upper GI tract. She was explained alternatives, risk, benefits include, send bleeding, infection, subsequent perforation, need for return to . She also was determined to have a positive Cologuard. This been over 10 years since her last colonoscopy. She was explained alternatives, risk, benefits include understanding bleeding, infection, sepsis, perforation, need for emergent surgery and . She will have an ASA of 3. Coding Level of Care Code Off vis,new,level 4 Diagnoses Positive colorectal cancer screening using Cologuard test R19.5 Acid reflux K21.9 I have examined the patient and the H&P has been reviewed. There are no clinical changes since date of exam.
--- NOTE | 2024-02-29 14:00 | COLBX_PTH ---
PATIENT: JONNATHAN SNOW LOC: EN U#:[id number] AGE/SX: 74/F ROOM: RE02/29/[address]: Dr. Damien Crespo DO : 1950 BED: DIS: 02/29/2024 SPEC #: [id number] RECD: 02/29/24 17:57 STATUS: KEVIN SALVADOR #: [id number] BO: 02/29/24 14:[address]: Damien Crespo DEPT: SURGICAL PATHOLOGY RECD BY: Radha Helms ENTERED: 03/01/24 09:26 SP TYPE: COLON BX OTHR DR: Dr. Bridger Grewal MD Tissues: A - Esophagus, NOS B - Rectum, NOS C - Rectum, NOS Procedures: Special Stain Group I Surgery Specimen Level IV Alcian Blue/PAS (control) HEADER OPERATION: Colonoscopy, EGD, biopsy PRE-OP DIAGNOSIS: Positive colorectal cancer screening using Cologuard test, acid reflux TISSUE SUBMITTED: A- Distal esophagus biopsy, B Rectal polyp biopsy, C- Rectal ulcer biopsy MICROSCOPIC DIAGNOSIS A. Distal esophagus, biopsy: Gastroesophageal junction mucosa with mild chronic inflammation. Focal changes of reflux. No evidence of goblet cell metaplasia. See comment. B. Rectal polyp, biopsy: Colonic mucosa with hyperplastic change. C. Rectal ulcer, biopsy: Ulceration with granulation, fibrinopurulent exudate and associated hyperplastic change. [facility] 03/02/2024 COMMENT A. Alcian blue/PAS stain with matched control supports the above diagnosis. MICROSCOPIC DESCRIPTION Slides are reviewed. GROSS DESCRIPTION A. Received in fixative is one container labeled with the patient's name and designated Distal esophagus biopsy. The specimen consists of multiple irregular fragments of light vasquez soft tissue that in aggregate measure 1.0 x 0.3 x 0.1 cm. The specimen is totally submitted in one cassette. B. Received in fixative is one container labeled with the patient's name and designated Rectal polyp biopsy. The specimen consists of one irregular fragment of light vasquez soft tissue that measures 0.5 x 0.3 x 0.1 cm. The specimen is totally submitted in one cassette. C. Received in fixative is one container labeled with the patient's name and designated Rectal ulcer biopsy. The specimen consists of multiple irregular fragments of light vasquez soft tissue that in aggregate measure 0.7 x 0.2 x 0.1 cm. The specimen is totally submitted in one cassette. 03/01/2024 TC:2 CPT:[id number]
--- NOTE | 2024-02-29 14:33 | PRE.ANES_ITS ---
ASA Classification* ASA Classification ASA Classification: 2 Assessment & Plan Anesthesia* Anesthesia Assessment Anesthesia Assessment: Discussed sedation and/or anesthesia options, risks, benefits, and alternatives with patient/parents/legal guardian/POA. Questions invited. The patient/parents/legal guardian/POA seems to understand and agrees to proceed with anesthesia plan. Reviewed the physical assessment, medical history, allergy history and patient home medications list prior to surgery/procedure/anesthetic and documented any changes. Performed airway and anesthesia risk assessments. Anesthesia Type Anesthesia Type: MAC History Source History Obtained from:: Patient and Chart Anesthesia Focused Assessment* Temperature: 98 F Pulse Rate: 88 Blood Pressure: 153/82 Respiratory Rate: 18 Pulse Ox: 98 Oxygen Delivery Method: Room Air Airway Assessment Mouth opens: >3 cm Mallampati Score: III Teeth Condition: Missing (Patient is missing several teeth on the left molars upper and lower) Neck Range of motion (ROM): Full ROM Focused Labs Anesthesia Preop lab: CBC WBC 14.8 K/mm3 (4.4-11.0) H 06/14/18 05:08 RBC 4.64 M/mm3 (4.2-5.4) 06/14/18 05:08 Hgb 14.9 g/dl (12.0-15.0) 06/14/18 05:08 Hct 46.5 % (37-47) 06/14/18 05:08 Plt Count 206 K/mm3 (150-450) 06/14/18 05:08 CHEMISTRY Potassium 4.2 mmol/L (3.5-5.1) 06/08/18 11:44 Sodium 136 mmol/L (136-145) 06/08/18 11:44 BUN 13 mg/dL (7-18) 06/08/18 11:44 Creatinine 0.80 mg/dL (0.55-1.02) 06/14/18 05:08 Glucose 105 mg/dL (74-106) 06/08/18 11:44 POC Glucose 133 mg/dL (70-110) H 05/02/18 09:37 COAG PT 12.7 SECONDS (11.7-14.9) 06/08/18 11:44 Pre-Assessment Diagnosis/Proposed Procedure Planned Operative Procedure(s): COLONOSCOPY, EGD Anesthesia History 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 When Was Last Pacemaker Check QUESTION #4 FULL TEXT: You/Your Family Experience fever (hyperthermia) with Anesthesia Last Oral Intake Last Oral intake: Last Oral Intake NPO since 10:00 02/29/24 13:01 Meds taken in AM with sips of water? Meds patient instructed to take am of surgery Any additional information?: Yes NPO since: 10:15 (Patient finished prep at 10:15 AM.) PONV PONV - wallpaper hanger helper: PONV - wallpaper hanger helper Female Yes 02/22/24 13:20 HX of Motion Sickness No 02/22/24 13:20 HX of N/V After Surgery No 02/22/24 13:20 Non-Smoker Yes 02/22/24 13:20 Duration of Surgery greater No 02/22/24 13:20 than 60 minutes Number of Risk Factors 2 02/22/24 13:20 PONV Score Moderate Risk 02/22/24 13:20 Height & Weight Height & Weight: Anesthesia: Height & Weight Height 5 ft 7 in 02/29/24 13:01 Weight: 121 kg 02/29/24 13:01 Body Mass Index (BMI) 41.8 02/29/24 13:01 Respiratory Assessment Respiratory Assessment - wallpaper hanger helper: Respiratory Tract Infection Hx - wallpaper hanger helper Hx Respiratory Tract Infection No 02/22/24 13:20 STOP Sleep Apnea STOP Sleep Apnea - wallpaper hanger helper: STOP Sleep Apnea - wallpaper hanger helper Hx Hypertension No 02/22/24 13:20 Hx Sleep Apnea Yes 02/22/24 13:20 CPAP Yes 02/22/24 13:20 BIPAP No 02/22/24 13:20 Do you snore loudly (louder than talking or can be heard Do you often feel tired/ fatigued/ sleepy during daytime? Has anyone observed you stop breathing during sleep? STOP Results Positive 02/22/24 13:20 QUESTION #5 FULL TEXT : Do you snore loudly (louder than talking or can be heard through closed doors)? 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 Specify any problems Hx of Preganancy in last 3 No 02/22/24 13:20 Months Nurse Filling Out Transfusion [email or web address] 02/22/24 13:20 & Questions: Date: 02/22/24 02/22/24 13:20 Time: 13:23 02/22/24 13:20 Patient unable to answer at this time (ie. confused, unrespo /Reproduction History /Reproductive History - wallpaper hanger helper: /Reproductive Hx- wallpaper hanger helper Hx Now Gestational Age (in weeks): EDC: Hx Hx Para Hx Section SAB No 08/17/23 10:51 PFSH Medical History Wears glasses Alcohol use Back pain Gastric reflux Lumbar disc disease Colon cancer screening Leg swelling Cervical radiculopathy Drug-induced myopathy Apnea, sleep Morbid (severe) obesity due to excess calories Type 2 diabetes mellitus with other specified complication Hypothyroid Home Medications ?Medication ?Instructions ?Recorded ?Last Taken ?Type Potassium (Otc) [Potassium Otc] 99 mg PO DAILY 04/26/18 Unknown History chromium nicotinate glycinate 250 1 ea PO DAILY 04/26/18 Unknown History mcg-herbal no.238 775 mg tablet (Green Tea (with Metabolic Enhancer Blend)) cinnamon bark 500 mg capsule 1,000 mg PO DAILY 04/26/18 Unknown History cranberry 500 mg capsule 42 mg PO DAILY 04/26/18 Unknown History lactobacillus comb no.10 20 1 ea PO DAILY 04/26/18 Unknown History billion cell capsule (Probiotic) magnesium 250 mg tablet 250 mg PO DAILY 04/26/18 Unknown History multivitamin with minerals 1 ea PO DAILY 04/26/18 Unknown History (Multiple Vitamin-Minerals tablet) omeprazole magnesium 20 mg 20 mg PO DAILY 04/26/18 Unknown History tablet,delayed release (Prilosec OTC) calcium 500 mg (as carbonate)-D3 1 ea PO DAILY 06/06/18 Unknown History 2.5 mcg (100 unit) chewable tablet docusate sodium 100 mg capsule 100 mg PO BID PRN PRN Constipation 06/13/18 Unknown Rx #60 caps dulaglutide 0.75 mg/0.5 mL 0.75 mg subcut QWEEK 08/17/23 02/16/24 History subcutaneous pen injector (Trulicity) furosemide 40 mg tablet (Lasix) 40 mg PO DAILY 08/17/23 Unknown History glucosamine sulfate 500 mg tablet 500 mg PO DAILY 08/17/23 Unknown History (Cidatrine (glucosamine)) levothyroxine 50 mcg capsule 50 mcg PO DAILY 08/17/23 Unknown History lysine 500 mg tablet (L-Lysine) 500 mg PO DAILY 08/17/23 Unknown History omega-3 fatty acids 1,000 mg 1,000 mg PO DAILY 08/17/23 Unknown History capsule turmeric 400 mg capsule 400 mg PO DAILY 08/17/23 Unknown History aspirin 81 mg tablet,delayed 81 mg PO QDAY 01/20/24 Unknown History release (Adult Aspirin Regimen) pioglitazone 15 mg tablet 15 mg PO DAILY 02/22/24 Unknown History Allergy/AdvReac Type Severity Reaction Status Date / Time amoxicillin (From Augmentin) AdvReac JAUNDICE/DI Verified 02/29/24 13:00 ARRHEA clavulanic acid (From AdvReac JAUNDICE/DI Verified 02/29/24 13:00 Augmentin) ARRHEA levofloxacin (From Levaquin) AdvReac JAUNDICE/DI Verified 02/29/24 13:00 ARRHEA Surgical History S/P total knee replacement S/P hysterectomy S/P foot surgery S/P tubal ligation Social History household members: spouse current occupational status: retired Smoking Status: Current every day smoker tobacco type: cigarettes substance use type: does not use seatbelt use: always do you feel safe at home: Yes additional social history: - Iftikhar (Umesh) Review of Systems (Anesthesia) ROS Narrative System reviewed and no additional complaints, except as documented.
--- NOTE | 2024-02-29 14:36 | PRE.ANES_ITS ---
ASA Classification* ASA Classification ASA Classification: 3 Assessment & Plan Anesthesia* Anesthesia Assessment Anesthesia Assessment: Discussed sedation and/or anesthesia options, risks, benefits, and alternatives with patient/parents/legal guardian/POA. Questions invited. The patient/parents/legal guardian/POA seems to understand and agrees to proceed with anesthesia plan. Reviewed the physical assessment, medical history, allergy history and patient home medications list prior to surgery/procedure/anesthetic and documented any changes. Performed airway and anesthesia risk assessments. Anesthesia Type Anesthesia Type: MAC History Source History Obtained from:: Patient and Chart Anesthesia Focused Assessment* Temperature: 98 F Pulse Rate: 88 Blood Pressure: 153/82 Respiratory Rate: 18 Pulse Ox: 98 Airway Assessment Mouth opens: >3 cm Mallampati Score: II Focused Labs Anesthesia Preop lab: CBC WBC 14.8 K/mm3 (4.4-11.0) H 06/14/18 05:08 RBC 4.64 M/mm3 (4.2-5.4) 06/14/18 05:08 Hgb 14.9 g/dl (12.0-15.0) 06/14/18 05:08 Hct 46.5 % (37-47) 06/14/18 05:08 Plt Count 206 K/mm3 (150-450) 06/14/18 05:08 CHEMISTRY Potassium 4.2 mmol/L (3.5-5.1) 06/08/18 11:44 Sodium 136 mmol/L (136-145) 06/08/18 11:44 BUN 13 mg/dL (7-18) 06/08/18 11:44 Creatinine 0.80 mg/dL (0.55-1.02) 06/14/18 05:08 Glucose 105 mg/dL (74-106) 06/08/18 11:44 POC Glucose 133 mg/dL (70-110) H 05/02/18 09:37 COAG PT 12.7 SECONDS (11.7-14.9) 06/08/18 11:44 Pre-Assessment Diagnosis/Proposed Procedure Planned Operative Procedure(s): COLONOSCOPY, EGD Anesthesia History 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 When Was Last Pacemaker Check QUESTION #4 FULL TEXT: You/Your Family Experience fever (hyperthermia) with Anesthesia Last Oral Intake Last Oral intake: Last Oral Intake NPO since 10:00 02/29/24 13:01 Meds taken in AM with sips of water? Meds patient instructed to take am of surgery PONV PONV - financial service rep: PONV - financial service rep Female Yes 02/22/24 13:20 HX of Motion Sickness No 02/22/24 13:20 HX of N/V After Surgery No 02/22/24 13:20 Non-Smoker Yes 02/22/24 13:20 Duration of Surgery greater No 02/22/24 13:20 than 60 minutes Number of Risk Factors 2 02/22/24 13:20 PONV Score Moderate Risk 02/22/24 13:20 Height & Weight Height & Weight: Anesthesia: Height & Weight Height 5 ft 7 in 02/29/24 13:01 Weight: 121 kg 02/29/24 13:01 Body Mass Index (BMI) 41.8 02/29/24 13:01 Respiratory Assessment Respiratory Assessment - financial service rep: Respiratory Tract Infection Hx - financial service rep Hx Respiratory Tract Infection No 02/22/24 13:20 STOP Sleep Apnea STOP Sleep Apnea - financial service rep: STOP Sleep Apnea - financial service rep Hx Hypertension No 02/22/24 13:20 Hx Sleep Apnea Yes 02/22/24 13:20 CPAP Yes 02/22/24 13:20 BIPAP No 02/22/24 13:20 Do you snore loudly (louder than talking or can be heard Do you often feel tired/ fatigued/ sleepy during daytime? Has anyone observed you stop breathing during sleep? STOP Results Positive 02/22/24 13:20 QUESTION #5 FULL TEXT : Do you snore loudly (louder than talking or can be heard through closed doors)? 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 Specify any problems Hx of Preganancy in last 3 No 02/22/24 13:20 Months Nurse Filling Out Transfusion [email or web address] 02/22/24 13:20 & Questions: Date: 02/22/24 02/22/24 13:20 Time: 13:23 02/22/24 13:20 Patient unable to answer at this time (ie. confused, unrespo /Reproduction History /Reproductive History - financial service rep: /Reproductive Hx- financial service rep Hx Now Gestational Age (in weeks): EDC: Hx Hx Para Hx Section SAB No 08/17/23 10:51 PFSH Medical History Wears glasses Alcohol use Back pain Gastric reflux Lumbar disc disease Colon cancer screening Leg swelling Cervical radiculopathy Asthma Drug-induced myopathy Apnea, sleep Morbid (severe) obesity due to excess calories Type 2 diabetes mellitus with other specified complication Hypothyroid Home Medications ?Medication ?Instructions ?Recorded ?Last Taken ?Type Potassium (Otc) [Potassium Otc] 99 mg PO DAILY 04/26/18 Unknown History chromium nicotinate glycinate 250 1 ea PO DAILY 04/26/18 Unknown History mcg-herbal no.238 775 mg tablet (Green Tea (with Metabolic Enhancer Blend)) cinnamon bark 500 mg capsule 1,000 mg PO DAILY 04/26/18 Unknown History cranberry 500 mg capsule 42 mg PO DAILY 04/26/18 Unknown History lactobacillus comb no.10 20 1 ea PO DAILY 04/26/18 Unknown History billion cell capsule (Probiotic) magnesium 250 mg tablet 250 mg PO DAILY 04/26/18 Unknown History multivitamin with minerals 1 ea PO DAILY 04/26/18 Unknown History (Multiple Vitamin-Minerals tablet) omeprazole magnesium 20 mg 20 mg PO DAILY 04/26/18 Unknown History tablet,delayed release (Prilosec OTC) calcium 500 mg (as carbonate)-D3 1 ea PO DAILY 06/06/18 Unknown History 2.5 mcg (100 unit) chewable tablet docusate sodium 100 mg capsule 100 mg PO BID PRN PRN Constipation 06/13/18 Unknown Rx #60 caps dulaglutide 0.75 mg/0.5 mL 0.75 mg subcut QWEEK 08/17/23 02/16/24 History subcutaneous pen injector (Trulicity) furosemide 40 mg tablet (Lasix) 40 mg PO DAILY 08/17/23 Unknown History glucosamine sulfate 500 mg tablet 500 mg PO DAILY 08/17/23 Unknown History (Cidatrine (glucosamine)) levothyroxine 50 mcg capsule 50 mcg PO DAILY 08/17/23 Unknown History lysine 500 mg tablet (L-Lysine) 500 mg PO DAILY 08/17/23 Unknown History omega-3 fatty acids 1,000 mg 1,000 mg PO DAILY 08/17/23 Unknown History capsule turmeric 400 mg capsule 400 mg PO DAILY 08/17/23 Unknown History aspirin 81 mg tablet,delayed 81 mg PO QDAY 01/20/24 Unknown History release (Adult Aspirin Regimen) pioglitazone 15 mg tablet 15 mg PO DAILY 02/22/24 Unknown History Allergy/AdvReac Type Severity Reaction Status Date / Time amoxicillin (From Augmentin) AdvReac JAUNDICE/DI Verified 02/29/24 13:00 ARRHEA clavulanic acid (From AdvReac JAUNDICE/DI Verified 02/29/24 13:00 Augmentin) ARRHEA levofloxacin (From Levaquin) AdvReac JAUNDICE/DI Verified 02/29/24 13:00 ARRHEA Surgical History S/P total knee replacement S/P hysterectomy S/P foot surgery S/P tubal ligation Social History household members: spouse current occupational status: retired Smoking Status: Current every day smoker tobacco type: cigarettes substance use type: does not use seatbelt use: always do you feel safe at home: Yes additional social history: - Iftikhar (Umesh) Review of Systems (Anesthesia) ROS Narrative System reviewed and no additional complaints, except as documented.
--- NOTE | 2024-02-29 15:29 | OP.EGD_ITS ---
Patient Name: Laura Sloan Procedure Date: 02/29/2024 2:34 PM Date of : 1950 Age: 74 Procedure: Upper GI endoscopy Indications: Heartburn, Suspected esophageal reflux Providers: Damien Crespo DO Referring MD: Bridger Grewal Medicines: Monitored Anesthesia Care Patient Profile: This is a 74 year old female. Refer to note in patient chart for documentation of history and physical. Patient has symptoms of chronic heartburn. Complications: No immediate complications. Procedure: Pre-Anesthesia Assessment: - Prior to the procedure, a History and Physical was performed, and patient medications and allergies were reviewed. The patient is competent. The risks and benefits of the procedure and the sedation options and risks were discussed with the patient. All questions were answered and informed consent was obtained. Patient identification and proposed procedure were verified by the physician in the pre-procedure area. Mental Status Examination: alert and oriented. Airway Examination: normal oropharyngeal airway and neck mobility. Respiratory Examination: clear to auscultation. CV Examination: normal. Prophylactic Antibiotics: The patient does not require prophylactic antibiotics. Prior Anticoagulants: The patient has taken no anticoagulant or antiplatelet agents except for NSAID medication. ASA Grade Assessment: II - A patient with mild systemic disease. After reviewing the risks and benefits, the patient was deemed in satisfactory condition to undergo the procedure. The anesthesia plan was to use monitored anesthesia care (MAC). Immediately prior to administration of medications, the patient was re-assessed for adequacy to receive sedatives. The heart rate, respiratory rate, oxygen saturations, blood pressure, adequacy of pulmonary ventilation, and response to care were monitored throughout the procedure. The physical status of the patient was re-assessed after the procedure. After obtaining informed consent, the endoscope was passed under direct vision. Throughout the procedure, the patient's blood pressure, pulse, and oxygen saturations were monitored continuously. The Colonoscope was introduced through the mouth, and advanced to the second part of duodenum. The upper GI endoscopy was accomplished without difficulty. The patient tolerated the procedure well. Scope In: 2:49:25 PM Scope Out: 2:51:33 PM Total Procedure Duration Time 0 hours 2 minutes 8 seconds Findings: LA Grade A (one or more mucosal breaks less than 5 mm, not extending between tops of 2 mucosal folds) esophagitis with no bleeding was found 36 to 40 cm from the incisors. Biopsies were taken with a cold forceps for histology. Verification of patient identification for the specimen was done. Estimated blood loss was minimal. A medium-sized hiatal hernia was present. A few 5 mm hyperplastic polyps with no stigmata of recent bleeding were found in the gastric fundus. No gross lesions were noted in the duodenal bulb. Impression: - LA Grade A reflux esophagitis with no bleeding. Biopsied. - Medium-sized hiatal hernia. - A few gastric polyps. - No gross lesions in the duodenal bulb. Recommendation: - Discharge patient to home. - Resume previous diet. - Continue present medications. - Await pathology results. Procedure Code(s): --- Professional --- 98126, Esophagogastroduodenoscopy, flexible, transoral; with biopsy, single or multiple CPT copyright 2021 [employer]. All rights reserved. The codes documented in this report are preliminary and upon remote inpatient coder review may be revised to meet current compliance requirements. Damien Crespo DO 02/29/2024 3:29:20 PM This report has been signed electronically. Number of Addenda: 0 Note Initiated On: 02/29/2024 2:34 PM
--- NOTE | 2024-02-29 15:29 | OP.CCLET_ITS ---
02/29/2024 Bridger Grewal Re : Upper GI endoscopy procedure for Laura Sloan Miriamr Uri This procedure was performed on Thursday, February 29, 2024. My impressions and recommendations are as follows: Impressions : - LA Grade A reflux esophagitis with no bleeding. Biopsied. - Medium-sized hiatal hernia. - A few gastric polyps. - No gross lesions in the duodenal bulb. Recommendations : - Discharge patient to home. - Resume previous diet. - Continue present medications. - Await pathology results. My findings are described in the full procedure note, which is enclosed. If I can be of further assistance, please feel free to contact me at . Sincerely, Damien Crespo, 02/29/2024 3:29:20 PM This report has been signed electronically.
--- NOTE | 2024-02-29 15:32 | PCM.POST.ANE ---
Anesthesia: Postop Eval I Current Vital Signs Temperature: 97.4 F Pulse Rate: 81 Blood Pressure: 120/60 Respiratory Rate: 18 Pulse Ox: 98 Oxygen Delivery Method: Room Air Assessment Airway patent: Yes Spontaneous unlabored respirations: Yes Mental status: Awake and Calm nausea: No Vomiting: No Anesthesia Complication: No Fluid Hydration Crystalloid volume administer (ml): 75 Total IV fluid infused: 75 Progress Note Anesthesia document: Postop Eval 1 completed: Yes
--- NOTE | 2024-02-29 15:35 | OP.COLON_ITS ---
Patient Name: Laura Sloan Procedure Date: 02/29/2024 2:51 PM Date of : 1950 Age: 74 Procedure: Colonoscopy Indications: Screening for colorectal malignant neoplasm Providers: Damien Crespo DO Referring MD: Bridger Grewal Medicines: Monitored Anesthesia Care Patient Profile: This is a 74 year old female. Refer to note in patient chart for documentation of history and physical. Patient has symptoms of chronic heartburn. Last Colonoscopy: 10 years ago. Complications: No immediate complications. Procedure: Pre-Anesthesia Assessment: - Prior to the procedure, a History and Physical was performed, and patient medications and allergies were reviewed. The patient is competent. The risks and benefits of the procedure and the sedation options and risks were discussed with the patient. All questions were answered and informed consent was obtained. Patient identification and proposed procedure were verified by the physician in the pre-procedure area. Mental Status Examination: alert and oriented. Airway Examination: normal oropharyngeal airway and neck mobility. Respiratory Examination: clear to auscultation. CV Examination: normal. Prophylactic Antibiotics: The patient does not require prophylactic antibiotics. Prior Anticoagulants: The patient has taken no anticoagulant or antiplatelet agents except for NSAID medication. ASA Grade Assessment: II - A patient with mild systemic disease. After reviewing the risks and benefits, the patient was deemed in satisfactory condition to undergo the procedure. The anesthesia plan was to use monitored anesthesia care (MAC). Immediately prior to administration of medications, the patient was re-assessed for adequacy to receive sedatives. The heart rate, respiratory rate, oxygen saturations, blood pressure, adequacy of pulmonary ventilation, and response to care were monitored throughout the procedure. The physical status of the patient was re-assessed after the procedure. After I obtained informed consent, the scope was passed under direct vision. Throughout the procedure, the patient's blood pressure, pulse, and oxygen saturations were monitored continuously. The Colonoscope was introduced through the anus and advanced to the cecum, identified by appendiceal orifice and ileocecal valve. The colonoscopy was performed without difficulty. The patient tolerated the procedure well. The quality of the bowel preparation was adequate. The ileocecal valve, appendiceal orifice, and rectum were photographed. Scope In: 2:53:11 PM Scope Withdrawal Time 0 hours 9 minutes 8 seconds Scope Out: 3:24:37 PM Total Procedure Duration Time 0 hours 31 minutes 26 seconds Findings: The perianal and digital rectal examinations were normal. Multiple small and large-mouthed diverticula were found in the recto-sigmoid colon, sigmoid colon and descending colon. A benign-appearing, intrinsic severe stenosis measuring 3 cm (in length) x 5 mm (inner diameter) was found in the sigmoid colon and was traversed. A 4 mm polyp was found in the rectum. The polyp was sessile. The polyp was removed with a jumbo cold forceps. Resection and retrieval were complete. Verification of patient identification for the specimen was done. Estimated blood loss was minimal. A single (solitary) three mm ulcer was found in the rectum. No bleeding was present. Biopsies were taken with a cold forceps for histology. Verification of patient identification for the specimen was done. Estimated blood loss was minimal. Moderate rectal prolapse was present. Impression: - Diverticulosis in the recto-sigmoid colon, in the sigmoid colon and in the descending colon. - Stricture in the sigmoid colon. - One 4 mm polyp in the rectum, removed with a jumbo cold forceps. Resected and retrieved. - A single (solitary) ulcer in the rectum. Biopsied. Recommendation: - Discharge patient to home. - Resume previous diet. - Continue present medications. - Await pathology results. - Repeat colonoscopy in 5 years for surveillance. Procedure Code(s): --- Professional --- 07988, Colonoscopy, flexible; with biopsy, single or multiple CPT copyright 2021 [employer]. All rights reserved. The codes documented in this report are preliminary and upon boiler blower review may be revised to meet current compliance requirements. Damien Crespo DO 02/29/2024 3:34:53 PM This report has been signed electronically. Number of Addenda: 0 Note Initiated On: 02/29/2024 2:51 PM
--- NOTE | 2024-02-29 15:35 | OP.CCLET_ITS ---
02/29/2024 Bridger Grewal Re : Colonoscopy procedure for Laura Sloan Dear Uri This procedure was performed on Thursday, February 29, 2024. My impressions and recommendations are as follows: Impressions : - Diverticulosis in the recto-sigmoid colon, in the sigmoid colon and in the descending colon. - Stricture in the sigmoid colon. - One 4 mm polyp in the rectum, removed with a jumbo cold forceps. Resected and retrieved. - A single (solitary) ulcer in the rectum. Biopsied. Recommendations : - Discharge patient to home. - Resume previous diet. - Continue present medications. - Await pathology results. - Repeat colonoscopy in 5 years for surveillance. My findings are described in the full procedure note, which is enclosed. If I can be of further assistance, please feel free to contact me at . Sincerely, Damien Crespo, 02/29/2024 3:34:53 PM This report has been signed electronically.
--- NOTE | 2024-02-29 16:55 | PCM.POSTANE2 ---
Anesthesia Postop Eval I Sum Postop Eval Completion status Anesthesia document: Postop Eval 1 completed: Yes Anesthesia Postop Eval I Summary Anesthesia Postop Eval I Summary: Anesthesia Postop Eval I: Assessment Summary Airway patent Yes 02/29/24 15:33 [email or web address] Spontaneous unlabored Yes 02/29/24 15:33 [email or web address] respirations Mental status Awake,Calm 02/29/24 15:33 [email or web address] nausea No 02/29/24 15:33 [email or web address] Vomiting No 02/29/24 15:33 [email or web address] Anesthesia Postop Eval I: Fluid Summary Crystalloid volume administer 75 02/29/24 15:33 [email or web address] (ml) Colloids volume administered ( ml) Blood Product volume administered (ml) Total IV fluid infused 75 02/29/24 15:33 [email or web address] Anesthesia Postop Eval I: Summary Notes Anesthesia Complication No 02/29/24 15:33 [email or web address] Anesthesia Complication Comment: Post-operative progress note Anesthesia: Postop Eval II Evaluation Mental status: Awake and Calm Pain Level: 0 nausea: No Vomiting: No Complications Anesthesia Complication: No
== END 2024-02-29 16:09 | disposition home or self-care (01) ==
LOC: EN 12:43 → AC 12:45
PROVIDERS: PCP Family Medicine; Referring Provider Family Medicine; Visit Provider Internal Medicine Gastroenterology
PROC: 0DJD8ZZ Inspection of Lower Intestinal Tract, Via Natural or Artificial Opening Endoscopic (ICD-10-PCS; CPT 45378; principal; 2024-02-29 13:55)
DX: R19.5 Other fecal abnormalities (principal); K56.609 Unspecified intestinal obstruction, unspecified as to partial versus complete obstruction; K21.00 Gastro-esophageal reflux disease with esophagitis, without bleeding; K62.1 Rectal polyp; K31.7 Polyp of stomach and duodenum; K62.6 Ulcer of anus and rectum; K44.9 Diaphragmatic hernia without obstruction or gangrene; K57.30 Diverticulosis of large intestine without perforation or abscess without bleeding; Z79.899 Other long term (current) drug therapy
CPT/HCPCS: 45380; 43239; 88305; 88312; A4216; J2405